=== PATIENT | male | born 1960 | race Caucasian/White ===

== ENCOUNTER 2018-01-09 09:00 | Outpatient (CLI) | payer OTHER ==
--- NOTE | 2018-01-09 10:41 | MRI ---
MRI OF THE RIGHT SHOULDER: Date: 01-09-18 Provided Clinical History: Right shoulder pain. FINDINGS: There is full thickness, full width retracted tearing of the supraspinatus tendon with retraction to about the level of the acromioclavicular joint. The components of the rotator cuff appear otherwise i ntact. The longhead biceps tendon appears intact and normally located. Rotator cuff muscular volume a ppears preserved with the exception of mild muscular volume loss without fatty infiltration involving the supraspinatus. The longhead biceps tendon appears intact and normally located. The glenoid labrum and glenohumeral a rticular cartilage are suboptimally evaluated without joint distention. There is greater than physiol ogic subarachnoid/subdeltoid bursal fluid on the basis of the rotator cuff defect. There is a physiol ogic amount of fluid within the glenohumeral joint. Acromioclavicular joint osteoarthrosis is noted which produces mild mass effect upon the supraspinatu s. No focal concerning regional marrow or muscular signal abnormality is evident. IMPRESSION: 1. Full thickness, full width retracted supraspinatus tendon tear with mild muscular volume loss. 2. Acromioclavicular joint osteoarthrosis. POS: IZZY
== END 2018-01-09 09:01 | disposition home or self-care (01) ==
LOC: MRI 09:00
PROVIDERS: ATTEND Orthopaedic Surgery
DX: M25.511 Pain in right shoulder (principal); M19.011 Primary osteoarthritis, right shoulder; M75.101 Unspecified rotator cuff tear or rupture of right shoulder, not specified as traumatic

== ENCOUNTER 2018-01-20 14:21 | Outpatient (CLI) | payer OTHER ==
[2018-01-20 14:57] LABS: Mean Corpuscular HGB CONC 35.5 g/dL (32.0-36.0); Mean Corpuscular Hemoglobin 33.1 pg (27.0-31.0); Mean Corpuscular Volume 93.3 fl (80.0-94.0); Platelet Count 199 thou/uL (130-400); RBC Distribution Width 11.7 % (11.5-14.5); Red Blood Cell (RBC) Count 4.83 mill/uL (4.70-6.10); White Blood Cell (WBC) Count 7.5 thou/uL (4.8-10.8)
[2018-01-20 15:25] LABS: BUN (Urea Nitrogen) 17 mg/dL (8.4-25.7); Calc. Creatinine Clearance 0 mL/min (70-130); Calcium 9.3 mg/dL (7.8-10.44); Carbon Dioxide 24 mmol/L (22-29); Chloride 106 mmol/L (98-107); Estimated GFR-MDRD 86; Glucose 88 mg/dL (70-105); Potassium 4.5 mmol/L (3.5-5.1); Sodium 137 mmol/L (136-145)
[2018-01-20 15:48] LABS: Anion Gap 14 mmol/L (10-20)
--- NOTE | 2018-01-23 17:29 | EKG ---
Test Reason : Blood Pressure : / mmHG Vent. Rate : 049 BPM Atrial Rate : 049 BPM P-R Int : 142 ms QRS Dur : 092 ms QT Int : 396 ms P-R-T Axes : 037 025 037 degrees QTc Int : 357 ms Marked sinus bradycardia Abnormal ECG No previous ECGs available Confirmed by DR. Anahi MAZARIEGOS ([id number]) on 01/23/2018 5:29:19 PM Referred By: ADONAY Confirmed By:DR. Anahi MAZARIEGOS
== END 2018-01-20 14:22 | disposition home or self-care (01) ==
LOC: LABBT 14:21
PROVIDERS: ATTEND Orthopaedic Surgery
DX: Z01.810 Encounter for preprocedural cardiovascular examination (principal); Z01.812 Encounter for preprocedural laboratory examination; M75.101 Unspecified rotator cuff tear or rupture of right shoulder, not specified as traumatic
CPT/HCPCS: 80048; 85027; 93005; 93010

== ENCOUNTER 2018-01-24 05:45 | Day surgery (SDC) | payer OTHER ==
[2018-01-20 14:31] VITALS: BMI 27.9
[2018-01-24] MEDS ORDERED: Lidocaine 1% (PF) 30 ML VIAL ONE (06:25)
[2018-01-24] MEDS ORDERED: Midazolam HCl 2 mg/2 ml Vial ONE (06:25)
[2018-01-24] MEDS ORDERED: Fentanyl 250 MCG/5 ML VIAL ONE ×2 (06:25→07:45)
[2018-01-24] MEDS ORDERED: CEFAZOLIN/Water 2 GM/20 ML SYRINGE ONE (07:02)
[2018-01-24] MEDS ORDERED: Promethazine HCl 25 MG/ML VIAL IM PRN (07:15)
[2018-01-24] MEDS ORDERED: Zolpidem Tartrate 5 MG TAB PO PRN (07:15)
[2018-01-24] MEDS ORDERED: Ondansetron HCl/PF 4 MG/2 ML Vial IVP PRN (07:15)
[2018-01-24] MEDS ORDERED: traMADol HCl 50 MG TAB PO PRN ×2 (07:15)
[2018-01-24] MEDS ORDERED: HYDROcodone/Acetaminophen 10/325 mg Tablet PO PRN ×2 (07:15)
[2018-01-24] MEDS ORDERED: Ropivacaine 0.2% 550 ML 550 ML NERVE BLCK SCH (07:15)
[2018-01-24] MEDS ORDERED: Fentanyl 100 MCG/2 ML VIAL IV PRN (07:16)
--- NOTE | 2018-01-24 09:04 | OP ---
DATE OF PROCEDURE: 01/24/2018 PREOPERATIVE DIAGNOSIS: Massive rotator cuff tear, right shoulder. POSTOPERATIVE DIAGNOSIS: Massive Rotator cuff tear, right shoulder. SURGICAL PROCEDURE: Open acromioplasty and open rotator cuff repair. SURGEON: Tomás Bailey M.D. BORDER GUARD: Hilary Quinn PA-C. BLOOD LOSS: Minimal. SPECIMEN: None. DRAINS: None. COMPLICATIONS: None. PROCEDURE IN DETAIL: The patient was taken to the operating room where general anesthesia induced. He was placed in beach chair position. Right arm was prepped and draped in the usual sterile fashion . He received Ancef preoperatively. I made a standard deltoid splitting approach. Anterior and inf erior acromioplasty was performed. Bursal tissue was removed. Rotator cuff tear extended all the wa y to the glenoid. This was a V-shaped tear. I used an Allis clamp and chamfers to free up the rotat or cuff and mobilize this. The cuff was mobilized and fixed with side to side repairs. He had #1 m m cottony Dacron tape. A good watertight repair was obtained with this technique and the sutures wer e then attached to bone using a SwiveLock device. Irrigation performed. Deltoid was repaired back t o bone using #1 Ethibond, subcu closed with 2-0 Vicryl, and the skin was closed with juan. Steril e dressings applied. There were no complications.
[2018-01-24] MEDS ORDERED: Ondansetron HCl/PF 4 MG/2 ML Vial ONE (11:01)
[2018-01-24] MEDS ORDERED: Ketorolac Tromethamine 30 MG/ML VIAL IVP SCH (12:00)
== END 2018-01-24 11:40 | disposition home or self-care (01) ==
LOC: SDC 05:45
PROVIDERS: ATTEND Orthopaedic Surgery
PROC: 0LQ10ZZ Repair Right Shoulder Tendon, Open Approach (ICD-10-PCS; principal; 2018-01-24)
DX: M75.101 Unspecified rotator cuff tear or rupture of right shoulder, not specified as traumatic (principal); Z98.890 Other specified postprocedural states
CPT/HCPCS: 96374; A4306; C1713; G8984-GP-CK; G8985-GP-CK; G8986-GP-CK; J2001; J2250; J2405; J2795; J3010

== ENCOUNTER 2018-01-25 17:05 | Emergency (ER) | payer OTHER ==
[2018-01-25] MEDS ORDERED: Ondansetron ODT 4 MG TAB ONE (18:01)
[2018-01-25] MEDS ORDERED: Dexamethasone 4 mg/ml Vial ONE (18:54)
[2018-01-25] MEDS ORDERED: Fentanyl 100 MCG/2 ML VIAL ONE ×2 (18:59→19:23)
== END 2018-01-25 20:24 | disposition home or self-care (01) ==
LOC: ERS 17:05
DX: M25.511 Pain in right shoulder (principal)
CPT/HCPCS: 96374; J1100; J3010; Q0162

== ENCOUNTER 2018-06-19 07:35 | Outpatient (CLI) | payer OTHER ==
--- NOTE | 2018-06-19 10:30 | MRI ---
MRI RIGHT KNEE: Date: 06-19-18 Provided Clinical History: Right knee pain. FINDINGS: No comparisons. Post-operative changes of ACL reconstruction are demonstrated with an intact appearance to the ACL gr aft. The posterior cruciate ligament, medial collateral ligaments, lateral collateral ligaments, comp vitor and extensor mechanism appear intact. There is maceration/complex nondisplaced degenerative tearing involving the body and posterior horn o f the medial meniscus. There is grade III signal present involving the body of the lateral meniscus. No focal articular cartilage defect is apparent. There is a small knee joint effusion with Baeza cyst formation. No focal concerning renal marrow or musculature signal abnormality. IMPRESSION: 1. Maceration/nondisplaced complex degenerative tearing involving the body and posterior horn of the medial meniscus. 2. Grade III signal involving the body of the lateral meniscus. 3. Small knee joint effusion and Baeza's cyst formation. POS: DARIUSZ
== END 2018-06-19 07:36 | disposition home or self-care (01) ==
LOC: TBSIIMAG 07:35
PROVIDERS: ATTEND Orthopaedic Surgery
DX: M23.91 Unspecified internal derangement of right knee (principal); M23.221 Derangement of posterior horn of medial meniscus due to old tear or injury, right knee; M25.461 Effusion, right knee; M71.21 Synovial cyst of popliteal space [Baker], right knee

== ENCOUNTER 2019-02-02 11:37 | Outpatient (CLI) | payer OTHER ==
[~2019-02-02 11:37] MED LIST: Iopamidol 370 76% 100 ML VIAL ONE; Iopamidol 370 76% 50 ML VIAL FS ONE
--- NOTE | 2019-02-02 15:35 | CT ---
ABDOMEN CT WITH CONTRAST PELVIC CT WITH CONTRAST: History: Fever of unknown origin. Left lower quadrant tenderness. Comparison: None. FINDINGS: ABDOMEN CT: Lung bases are clear. Heart size is normal. No significant pericardial fluid. The descending thoracic aorta and abdominal aorta have a normal caliber. No periaortic fat stranding. Portal vein is patent. Unremarkable gallbladder. Liver, spleen, pancreas and adrenal glands have appropriate enhancement. No gastrohepatic, retrocrural or periportal lymphadenopathy. No mesenteric mass, lymphadenopathy, free air or free fluid. Symmetric enhancement of the kidneys. Bilaterally, no obstructive uropathy. Gastric mucosa, duodenum and multiple normal caliber small bowel loops are identified. No small bowel obstruction. Ileocecal j unction is normal. Normal caliber appendix. Contrast and fecal material opacify a normal appearing co jaden. Occasional diverticulum in the sigmoid colon. No diverticulitis. CT PELVIS: No mass, lymphadenopathy, free air or free fluid. Urinary bladder is unremarkable. No lytic or blasti c lesions in the osseous structures. IMPRESSION: No acute abnormality in the abdomen or pelvis. POS: DARIUSZ
== END 2019-02-02 11:38 | disposition home or self-care (01) ==
LOC: CT 11:37
PROVIDERS: ATTEND Physician Assistant
DX: R10.814 Left lower quadrant abdominal tenderness (principal); R50.9 Fever, unspecified
CPT/HCPCS: 36415; 74177; 80074; 86644; 86645; 86663; 86664; 86665; Q9967

== ENCOUNTER 2020-08-22 11:50 | Outpatient (CLI) | payer OTHER ==
--- NOTE | 2020-08-22 14:07 | RAD ---
RIGHT FOOT 3 VIEWS: HISTORY: Pain in foot. No injury. FINDINGS: There is mild arthritic change of the 1st metatarsophalangeal joint and interphalangeal joint of the great toe. There are no signs of any fracture. No calcaneal spur formation. IMPRESSION: Essentially unremarkable right foot. POS: FLORENCIO
--- NOTE | 2020-08-22 14:15 | RAD ---
RIGHT HAND 3 VIEWS; Date: 08/22/2020 HISTORY: Hand pain and stiffness. FINDINGS: There are some mild arthritic changes of the hand. These changes are most pronounced at the distal in terphalangeal joint of the index finger. Also very mild changes of the first carpometacarpal joint sp mike. Moderate arthritic changes of the metacarpophalangeal joint of the middle finger. A small cyst i s seen within the scaphoid. No fractures. IMPRESSION: Arthritic changes of the hand. POS: FLORENCIO
== END 2020-08-22 11:51 | disposition home or self-care (01) ==
LOC: BICRAD 11:50
PROVIDERS: ATTEND Family Medicine
DX: M79.671 Pain in right foot (principal); M25.641 Stiffness of right hand, not elsewhere classified; M25.674 Stiffness of right foot, not elsewhere classified; M19.041 Primary osteoarthritis, right hand
CPT/HCPCS: 80053; 80061; 81001; 83520; 84550; 85025; 85652; 86140; 86160; 86200; 86225; 86235; 86376; G0103

== ENCOUNTER 2025-08-03 09:30 | Outpatient (CLI) | payer BC | END 2025-08-03 09:31 | disposition home or self-care (01) | LOC: MRI 09:30 | PROVIDERS: ATTEND Orthopaedic Surgery | DX: S46.011A Strain of muscle(s) and tendon(s) of the rotator cuff of right shoulder, initial encounter (principal); M25.411 Effusion, right shoulder; S46.111A Strain of muscle, fascia and tendon of long head of biceps, right arm, initial encounter; M75.121 Complete rotator cuff tear or rupture of right shoulder, not specified as traumatic ==